=== PATIENT | male | born 1995 | race Caucasian/White ===

== ENCOUNTER 2021-01-30 22:49 | Emergency (ER) | payer OTHER | END 2021-01-31 00:30 | disposition home or self-care (01) | LOC: ER1 22:49 | DX: F43.22 Adjustment disorder with anxiety (principal); F20.9 Schizophrenia, unspecified; F32.9 Major depressive disorder, single episode, unspecified; F17.210 Nicotine dependence, cigarettes, uncomplicated | CPT/HCPCS: 99283 ==